=== PATIENT | male | born 1965 | race Caucasian/White ===

== ENCOUNTER → 2017-10-29 | Outpatient (CLI) | payer BC ==
[2014-07-30 14:15] VITALS: BP 140/82
--- NOTE | 2017-10-29 16:30 | RAD ---
Bilateral knees, 6 views, 10/29/2017: History: Fall, knee pain No fracture or dislocation is identified. The knee joint spaces are well maintained. No definite joint effusion is seen. IMPRESSION: No acute bony abnormality is detected.
== END | disposition home or self-care (01) ==
LOC: PMG 16:03
PROVIDERS: ATTEND General Practice
DX: M25.562 Pain in left knee (principal); M25.561 Pain in right knee
CPT/HCPCS: 73562

== ENCOUNTER 2018-05-04 08:59 | Emergency (ER) | payer BC ==
[~2018-05-04] VITALS: Ht 193 cm; Wt 129.3 kg
[2018-05-04] MEDS ORDERED: LIDOCAINE 2% 20 ML VIAL. ONE (10:00)
[2018-05-04] MEDS ORDERED: HYDR-971 PO (10:37)
[2018-05-04] MEDS ORDERED: IBUP800T19 PO (10:37)
[2018-05-04 11:16] VITALS: BP 124/84
--- NOTE | 2018-05-04 11:34 | ED.ADGEN ---
Past History Past Medical History: No Pertinent History Past Surgical History: No Surgical History Alcohol Use: None Drug Use: None Adult General HPI HPI Patient is a 52 year old male who presents with laceration of the left hand. Patient was handling a metal door that had a sharp edge on it. Somehow, he lost control of the door and it did slide in his hand causing him to sustain a laceration at the base of the fourth and fifth digits of the left hand. The patient complains of mild pain but also some swelling in that area. He has lacerations present. He does not complain of weakness, numbness, tingling in the affected extremity or fingers. His tetanus shot has been less than 5 years ago. Review of Systems Review of Systems Constitutional: Denies fever or chills Eyes: Denies eye complaints HENT: Denies nasal congestion Respiratory: Denies cough or shortness of breath Cardiovascular: No additional information not addressed in HPI : no urinary complaints Musculoskeletal: Denies back pain or joint pain Integument: Denies rash or skin lesions All other systems were reviewed and found to be within normal limits, except as documented in this note. Allergies Allergies Allergies Coded Allergies Type Severity Reaction Last Updated Verified No Known Drug Allergies 07/30/14 No Physical Exam Physical Exam Constitutional: Well developed, well nourished, no acute distress, non-toxic appearance HENT: Normocephalic, atraumatic, bilateral external ears normal, oropharynx moist Eyes: EOMI Neck: Normal range of motion Abdomen: Bowel sounds normal Skin: Warm, dry, no erythema, no rash Extremities: Laceration over the base of the palmar aspect of the fourth and fifth fingers on the right hand. The flexor mechanism is entirely intact. Capillary refill is less than 2 seconds. There is some mild swelling at the area. The laceration extends through the skin and well into the subcutaneous tissue. Neurologic: Alert and oriented X 3, normal motor function, normal sensory function Psychologic: Affect normal Current Patient Data Vital Signs Vital Signs Date Time Temp Pulse Resp B/P (MAP) Pulse Ox O2 Delivery O2 Flow Rate FiO2 05/04/18 11:16 75 20 124/84 (97) 100 Room Air 05/04/18 08:59 98.0 EKG EKG [] Radiology/Procedures Radiology/Procedures [] Course & Med Decision Making Course & Med Decision Making Pertinent Labs and Imaging studies reviewed. (See chart for details) Patient is seen and examined in the emergency department. He had sutures placed. See the suture and procedure note below. Patient tolerated well. He was then discharged home. He was provided prescription for ibuprofen and [place] for severe pain. Opiate precautions were discussed. All the patient's questions were answered prior to discharge home. He is instructed on what to watch for regarding possible infection and he will return to the ER if he sees any signs or symptoms of this. Otherwise, he will return in 10 days to have the sutures removed. Procedure note: Local anesthesia is provided to the base of the right fourth and fifth fingers with 1% lidocaine. 2 mils total was used. When adequate anesthesia was attained, the area was cleansed with saline and Betadine. The wound was irrigated with normal saline. Following this, 7 simple interrupted sutures were placed at the base of both fingers for a total of 14 sutures. 4-0 nylon was used. Bleeding was well controlled. The wound edges were reapproximated. The patient tolerated the procedure well. Final Impression Final Impression Laceration of left hand. Dragon Disclaimer Dragon Disclaimer This electronic medical record was generated, in whole or in part, using a voice recognition dictation system. KARLA SUMNER DO May 04, 2018 11:34
== END 2018-05-04 10:54 | disposition home or self-care (01) ==
LOC: ER 08:59
DX: S61.412A Laceration without foreign body of left hand, initial encounter (principal); W45.8XXA Other foreign body or object entering through skin, initial encounter; Y93.89 Activity, other specified; Y99.8 Other external cause status; Y92.89 Other specified places as the place of occurrence of the external cause
CPT/HCPCS: 12001; 99283